=== PATIENT | female | born 1980 | race African-American/Black ===

== ENCOUNTER 2021-11-22 04:29 | Inpatient (IN) | payer OTHER ==
[2021-11-18 09:33] VITALS: BMI 23.5
[2021-11-22] MEDS ORDERED: ceFAZolin SODIUM 1 GM VIAL IVPB ONE ×2 (11:12→14:14)
[2021-11-22] MEDS ORDERED: LIDOCAINE 1%/EPI 1:100000 (20 ML MULTI DOSE VIAL) IJ ONE ×2 (11:12→14:12)
[2021-11-22] MEDS ORDERED: THROMBIN (BOVINE) 5,000 UNIT VIAL TP ONE ×3 (11:13→14:40)
[2021-11-22] MEDS ORDERED: VANCOMYCIN 1 GM in NS (PRE-DOCKED) 1,000 MG/250 ML IVPB ONE ×2 (11:13→14:15)
[2021-11-22] MEDS ORDERED: GENTAMICIN SO4 80 MG/2 ML VIAL IVPB ONE ×2 (11:13→14:46)
[2021-11-22] MEDS ORDERED: HYDROGEN PEROXIDE 473 ML PO ONE ×2 (11:14→14:46)
[2021-11-22] MEDS ORDERED: GENTAMICIN SO4 80 MG/2 ML VIAL ONE (11:29)
[2021-11-22] MEDS ORDERED: LIDOCAINE 1%/EPI 1:100000 (20 ML MULTI DOSE VIAL) ONE (11:29)
[2021-11-22] MEDS ORDERED: THROMBIN (BOVINE) 20,000 UNIT VIAL TP ONE (11:45)
[2021-11-22] MEDS ORDERED: DEXAMETHASONE SOD PHOSPHATE 4 MG/1 ML VIAL ONE (12:58)
[2021-11-22] MEDS ORDERED: PROPOFOL 20 ML ONE (12:58)
[2021-11-22] MEDS ORDERED: MIDAZOLAM HCL 2 MG/2 ML SINGLE DOSE VIAL ONE ×2 (12:58→15:53)
[2021-11-22] MEDS ORDERED: ROCURONIUM BROMIDE 50 MG/5 ML SYRINGE ONE (12:58)
[2021-11-22] MEDS ORDERED: LIDOCAINE HCL/PF (2%) 40 MG/2 ML VIAL ONE (12:58)
[2021-11-22] MEDS ORDERED: ONDANSETRON 4 MG/2 ML VIAL ONE (12:58)
[2021-11-22] MEDS ORDERED: SUCCINYLCHOLINE CHLORIDE 200 MG/10 ML SYRINGE ONE (13:57)
[2021-11-22] MEDS ORDERED: ONDANSETRON 4 MG/2 ML VIAL IVPUSH PRN ×2 (14:12→16:03)
[2021-11-22] MEDS ORDERED: ceFAZolin SODIUM 1 GM VIAL ONE (14:13)
[2021-11-22] MEDS ORDERED: TRANEXAMIC ACID 1000 MG/10 ML VIAL ONE (14:13)
[2021-11-22] MEDS ORDERED: VANCOMYCIN 1,000 MG VIAL (RESTRICTED TO ID ONLY) ONE (14:13)
[2021-11-22] MEDS ORDERED: LACTATED RINGERS SOLUTION 1,000 ML IV SCH (14:15)
[2021-11-22] MEDS ORDERED: ACETAMINOPHEN INJECTION 100 ML IVPB ONE (15:08)
[2021-11-22] MEDS ORDERED: NEOSTIGMINE METHYLSULFATE 0.5 MG/ML - 10 ML MDV ONE (15:29)
[2021-11-22] MEDS ORDERED: GLYCOPYRROLATE 0.2 MG/1 ML VIAL ONE (15:30)
[2021-11-22] MEDS ORDERED: diphenhydrAMINE HCL 25 MG CAPSULE (FP) PO PRN (16:03)
[2021-11-22] MEDS ORDERED: oxyCODONE HCL 5 MG TABLET PO PRN (16:03)
[2021-11-22] MEDS ORDERED: morphine CARPU-JECT 4 MG/1 ML DISP.SYRIN IVPUSH PRN (16:03)
[2021-11-22] MEDS ORDERED: LACTATED RINGERS SOLUTION 1,000 ML/1,000 ML INFUS.BAG IV SCH (16:15)
[2021-11-22] MEDS ORDERED: DEXTROSE 5% IVPB SCH ×2 (18:00→22:00)
[2021-11-22] MEDS ORDERED: CEFAZOLIN IVPB SCH ×2 (18:00→22:00)
[2021-11-22] MEDS ORDERED: WATER IVPB SCH ×2 (18:00→22:00)
[2021-11-22] MEDS: morphine SULFATE 4 MG/ML VIAL IVPUSH PRN ×2 (18:41→23:16)
[2021-11-22] MEDS ORDERED: CEFAZOLIN 1 GM in DEXTROSE 5%-WATER - 50 ML IVPB SCH (22:00)
[2021-11-22] MEDS: oxyCODONE HCL 5 MG TABLET PO PRN (22:06)
[2021-11-22] MEDS: DOCUSATE SODIUM 100 MG CAPSULE (FP) PO SCH (22:09)
[2021-11-22] MEDS: CEFAZOLIN 1 GM in DEXTROSE 5%-WATER - 50 ML IVPB SCH (22:10)
[2021-11-23] MEDS ORDERED: PHENOL 177 ML SPRAY BOTTLE MM PRN (01:39)
[2021-11-23] MEDS: morphine SULFATE 4 MG/ML VIAL IVPUSH PRN (03:09)
[2021-11-23] MEDS: DOCUSATE SODIUM 100 MG CAPSULE (FP) PO SCH ×3 (05:23→21:01)
[2021-11-23] MEDS: CEFAZOLIN 1 GM in DEXTROSE 5%-WATER - 50 ML IVPB SCH (05:23)
[2021-11-23] MEDS ORDERED: ACETAMINOPHEN 1000 MG/100 ML BAG IVPB ONE (07:00)
[2021-11-23] MEDS: ENOXAPARIN NA (PORCINE) 40 MG/0.4 ML DISP.SYRIN SQ SCH (09:32)
[2021-11-23] MEDS: FOLIC ACID 1 MG TABLET (FP) PO SCH (09:32)
[2021-11-23 10:39] LABS: HEMATOCRIT 33.6 % (32.4-45.2); HEMOGLOBIN 10.5 GM/dL (10.7-15.3); MCHC 31.2 g/dl (32.0-36.0); MEAN CELL VOLUME 80.2 fl (80-96); MEAN PLT VOLUME 9.1 fl (7.5-11.1); PLATELET COUNT 296 10^3/uL (134-434); RBC 4.19 M/mm3 (3.60-5.2); WHITE BLOOD COUNT 15.7 K/mm3 (4.0-10.0)
[2021-11-23 11:01] LABS: CALCIUM 9.2 mg/dL (8.5-10.1)
[2021-11-23 11:02] LABS: BLOOD UREA NITROGEN 6.4 mg/dL (7-18)
[2021-11-23 11:05] LABS: CREATININE 0.7 mg/dL (0.55-1.3)
[2021-11-23] MEDS: oxyCODONE HCL 5 MG TABLET PO PRN ×2 (14:18→20:04)
[2021-11-23 21:53] VITALS: RESP 20
[2021-11-24] MEDS: oxyCODONE HCL 5 MG TABLET PO PRN ×3 (01:44→12:21)
[2021-11-24] MEDS: DOCUSATE SODIUM 100 MG CAPSULE (FP) PO SCH (06:08)
[2021-11-24] MEDS: FOLIC ACID 1 MG TABLET (FP) PO SCH (09:20)
[2021-11-24] MEDS: ENOXAPARIN NA (PORCINE) 40 MG/0.4 ML DISP.SYRIN SQ SCH (09:20)
[2021-11-24 13:05] VITALS: BP 113/64; PULSE 84; TEMP 98.2
== END 2021-11-24 13:47 | disposition home or self-care (01) | DRG 321 ==
LOC: J2C 04:29 → J8W 18:19
PROVIDERS: ADMIT Neurological Surgery; ATTEND Family Medicine
PROC: 0RB30ZZ Excision of Cervical Vertebral Disc, Open Approach (ICD-10-PCS; 2021-11-22)
PROC: 01N10ZZ Release Cervical Nerve, Open Approach (ICD-10-PCS; 2021-11-22)
PROC: 4A11X4G Monitoring of Peripheral Nervous Electrical Activity, Intraoperative, External Approach (ICD-10-PCS; 2021-11-22)
PROC: 0RG20A0 Fusion of 2 or more Cervical Vertebral Joints with Interbody Fusion Device, Anterior Approach, Anterior Column, Open Approach (ICD-10-PCS; principal; 2021-11-22 11:00)
DX: M47.12 Other spondylosis with myelopathy, cervical region (principal); M40.202 Unspecified kyphosis, cervical region; G60.8 Other hereditary and idiopathic neuropathies
CPT/HCPCS: 36415; 72125-TC; 76000-TC-FY; 80048; 81025; 85027; 86850; 86900; 86901; 93005; 93010; 94010; 94760; 97116-GP; 97161-GP; C1713; C1776

== ENCOUNTER 2021-12-03 15:45 | Emergency (ER) | payer OTHER ==
[2021-12-03 15:54] VITALS: BP 129/79; PULSE 88; RESP 17; TEMP 98.4; BMI 22.7
[2021-12-03] MEDS ORDERED: FAMOTIDINE 20 MG/50 ML IVPB 20 MG/50 ML MG IVPB ONE ×2 (17:48→18:05)
[2021-12-03] MEDS ORDERED: DEXAMETHASONE SOD PHOSPHATE 4 MG/1 ML VIAL IVPUSH ONE (17:48)
[2021-12-03] MEDS ORDERED: MAG HYDROX/AL HYDROX/SIMETH -MYLANTA- ORAL SUSPENSION PO ONE (17:49)
[2021-12-03] MEDS ORDERED: DEXAMETHASONE SOD PHOSPHATE 10 MG/1 ML VIAL ONE (18:05)
[2021-12-03] MEDS ORDERED: MAG HYDROX/AL HYDROX/SIMETH 30 ML UNIT-DOSE CUP ONE (18:05)
[2021-12-03 18:43] LABS: BASO % 1.4 % (0-2.0); EOS % 3.6 % (0-4.5); HEMATOCRIT 34.6 % (32.4-45.2); MCH 25.3 pg (25.7-33.7); MCHC 31.8 g/dl (32.0-36.0); MEAN CELL VOLUME 79.4 fl (80-96); MEAN PLT VOLUME 9.2 fl (7.5-11.1); MONO % 8.5 % (3.8-10.2); NEUT % 55.5 % (42.8-82.8); PLATELET COUNT 470 10^3/uL (134-434); RBC 4.36 M/mm3 (3.60-5.2); RDW 15.2 % (11.6-15.6); WHITE BLOOD COUNT 8.5 K/mm3 (4.0-10.0)
[2021-12-03 18:49] LABS: INR 1.06 (0.83-1.09); PROTHROMBIN TIME (PATIENT) 12.2 SEC (9.7-13.0)
[2021-12-03 19:14] LABS: ALBUMIN 3.9 g/dl (3.4-5.0); BLOOD UREA NITROGEN 8.4 mg/dL (7-18); CALCIUM 9.3 mg/dL (8.5-10.1)
[2021-12-03 19:17] LABS: CREATININE 0.7 mg/dL (0.55-1.3)
[2021-12-03 19:19] LABS: BILIRUBIN,TOTAL 0.3 mg/dL (0.2-1); TOT PROT 7.4 g/dl (6.4-8.2)
== END 2021-12-03 23:20 | disposition home or self-care (01) ==
LOC: JER 15:45
PROC: 3E0333Z Introduction of Anti-inflammatory into Peripheral Vein, Percutaneous Approach (ICD-10-PCS; principal; 2021-12-03)
PROC: 3E033GC Introduction of Other Therapeutic Substance into Peripheral Vein, Percutaneous Approach (ICD-10-PCS; 2021-12-03)
DX: R13.10 Dysphagia, unspecified (principal)
CPT/HCPCS: 36415; 72125-TC; 80053; 85025; 85610; 99284-25

== ENCOUNTER 2023-03-22 12:58 | Emergency (ER) | payer OTHER ==
[2023-03-22 13:04] VITALS: BP 123/87; RESP 18; TEMP 98.9; BMI 23.5
[2023-03-22 14:40] VITALS: PULSE 92
== END 2023-03-22 14:41 | disposition home or self-care (01) ==
LOC: JERFT 12:58
DX: R05.9 Cough, unspecified (principal); R06.02 Shortness of breath; R07.89 Other chest pain; U07.1 COVID-19
CPT/HCPCS: 0241U-QW; 71046-TC-FY; 99284-25